=== PATIENT | male | born 1990 | race Caucasian/White ===

== ENCOUNTER 2024-04-02 13:28 | Inpatient (IN) | payer OTHER ==
[2024-04-02 14:03] VITALS: BMI 22.8
[2024-04-02] MEDS ORDERED: diazePAM 5 MG TABLET PO PRN (15:22)
[2024-04-02] MEDS ORDERED: hydrOXYzine PAMOATE 25 MG CAPSULE (FP) PO PRN (15:22)
[2024-04-02] MEDS ORDERED: BENZOCAINE/MENTHOL (CHLORASEPTIC ) LOZENGE MM PRN (15:22)
[2024-04-02] MEDS ORDERED: NALOXONE (NARCAN) HCL 4 MG/0.1 ML SPRAY NS PRN (15:22)
[2024-04-02] MEDS ORDERED: MAG HYDROX/AL HYDROX/SIMETH 30 ML UNIT-DOSE CUP PO PRN (15:22)
[2024-04-02] MEDS ORDERED: POLYETHYLENE GLYCOL (HEALTHYLAX) 3350 17 GM PACKET PO PRN (15:22)
[2024-04-02] MEDS ORDERED: LOPERAMIDE HCL 2 MG CAPSULE PO PRN (15:22)
[2024-04-02] MEDS ORDERED: guaiFENesin 600 MG TABLET.ER (FP) PO PRN (15:22)
[2024-04-02] MEDS ORDERED: BISMUTH SUBSALICYLATE 262 MG/15 ML BTL PO PRN (15:22)
[2024-04-02] MEDS ORDERED: IBUPROFEN 600 MG TABLET (FP) PO PRN (15:22)
[2024-04-02] MEDS ORDERED: ACETAMINOPHEN 325 MG TABLET (FP) PO PRN (15:22)
[2024-04-02] MEDS ORDERED: IBUPROFEN 400 MG TABLET (FP) PO PRN (15:22)
[2024-04-02] MEDS ORDERED: ONDANSETRON *ODT* 4 MG TABLET SL PRN (15:22)
[2024-04-02] MEDS ORDERED: MAGNESIUM HYDROX 2400MG/30ML ORAL SUSPENSION 30 ML CUP PO PRN (15:22)
[2024-04-02] MEDS ORDERED: BENZONATATE 200 MG CAPSULE PO PRN (15:22)
[2024-04-02] MEDS ORDERED: DICYCLOMINE HCL 10 MG CAPSULE PO PRN (15:22)
[2024-04-02] MEDS: diazePAM 5 MG TABLET PO SCH (16:52)
[2024-04-02] MEDS: MELATONIN 5 MG TABLETS PO SCH (22:16)
[2024-04-02] MEDS: THIAMINE 100 MG TABLET PO SCH (22:16)
[2024-04-03] MEDS: methaDONE HCL 40 MG DISPERSABLE TABLET PO SCH (05:39)
[2024-04-03] MEDS: PRENATAL VITAMINS W/ FOLIC ACID TABLET (FP) PO SCH (10:28)
[2024-04-03] MEDS: NICOTINE 21 MG/24 HOURS TOPICAL PATCH TD SCH (10:28)
[2024-04-03] MEDS: HALOPERIDOL 5 MG TABLET PO SCH (10:28)
[2024-04-03 11:17] LABS: HEMATOCRIT 38.2 % (35.4-49); HEMOGLOBIN 13.1 GM/dL (11.7-16.9); MCH 31.3 pg (25.7-33.7); MCHC 34.2 g/dl (32.0-35.9); MEAN CELL VOLUME 91.5 fl (80-96); MEAN PLT VOLUME 8.5 fl (7.5-11.1); PLATELET COUNT 293 10^3/uL (134-434); RBC 4.17 M/mm3 (4.00-5.60); RDW 12.9 % (11.9-15.9); WHITE BLOOD COUNT 7.1 K/mm3 (4.0-10.0)
[2024-04-03 11:25] LABS: CHLORIDE 108 mmol/L (98-107); POTASSIUM 4.6 mmol/L (3.5-5.1); SODIUM 141 mmol/L (136-145)
[2024-04-03 11:27] LABS: ALBUMIN 3.6 g/dl (3.4-5.0); CALCIUM 9.1 mg/dL (8.5-10.1)
[2024-04-03 11:28] LABS: ANION GAP 4 mmol/L (4-13); BLOOD UREA NITROGEN 14.4 mg/dL (7-18); CO2 30 mmol/L (21-32); GLUCOSE,RANDOM 105 mg/dL (74-106)
[2024-04-03 11:30] LABS: SGOT/AST 22 U/L (15-37); SGPT/ALT 30 U/L (13-61)
[2024-04-03 11:31] LABS: CREATININE 1.1 mg/dL (0.55-1.3)
[2024-04-03 11:32] LABS: BILIRUBIN,TOTAL 0.3 mg/dL (0.2-1); TOT PROT 6.2 g/dl (6.4-8.2)
[2024-04-03 11:33] LABS: ALK PHOS 74 U/L (45-117)
[2024-04-03] MEDS: PNEUMOC 20-VAL CONJ-DIP CRM/PF 0.5 ML SYRINGE IM ONE (11:35)
[2024-04-03] MEDS: SUVOREXANT 10 MG TABLET PO PRN (22:20)
[2024-04-04] MEDS: diazePAM 5 MG TABLET PO SCH (05:29)
[2024-04-04] MEDS: FLU VACCINE (FLULAVAL) PF 45 MCG/0.5 ML SYRINGE 2024-2025 IM ONE (12:33)
[2024-04-05] MEDS: diazePAM 5 MG TABLET PO SCH (05:20)
[2024-04-05 17:36] VITALS: RESP 16
[2024-04-05] MEDS: METHOCARBAMOL 500 MG TABLET PO PRN (21:30)
[2024-04-06] MEDS: diazePAM 5 MG TABLET PO ONE (06:12)
[2024-04-06 09:05] VITALS: BP 119/81; PULSE 60; TEMP 98
[2024-04-06] MEDS: NALOXONE (NYS OPIOID OVERDOSE PROGRAM) 4 MG/0.1 ML SPRAY NS PRN (11:39)
== END 2024-04-06 11:48 | disposition home or self-care (01) | DRG 773 ==
LOC: YASAS 13:28 → Y6N 15:53
PROVIDERS: ADMIT Allergy & Immunology; ATTEND Surgery
PROC: HZ2ZZZZ Detoxification Services for Substance Abuse Treatment (ICD-10-PCS; principal; 2024-04-02)
DX: F10.230 Alcohol dependence with withdrawal, uncomplicated (principal); F11.20 Opioid dependence, uncomplicated; F14.20 Cocaine dependence, uncomplicated; F17.210 Nicotine dependence, cigarettes, uncomplicated; F20.9 Schizophrenia, unspecified; F19.282 Other psychoactive substance dependence with psychoactive substance-induced sleep disorder; F19.24 Other psychoactive substance dependence with psychoactive substance-induced mood disorder; Z62.810 Personal history of physical and sexual abuse in childhood; Z56.0 Unemployment, unspecified; Z59.00 Homelessness unspecified
CPT/HCPCS: 36415; 80053; 80305; 80307; 85027; 86780; 90656; 90677; 93005; 93010; G0008; G0009